=== PATIENT | male | born 1995 | race Hispanic/Latino ===

== ENCOUNTER 2025-03-12 08:38 | Emergency (ER) | payer SELFPAY ==
[~2025-03-12] VITALS: Ht 185.4 cm; Wt 77.1 kg
[2025-03-12 08:40] VITALS: BP 138/77; PULSE 76; RESP 16; TEMP 97.9; O2SAT 100
[2025-03-12] MEDS ORDERED: ERYT1OIN7 OP (09:23)
--- NOTE | 2025-03-12 09:25 | ERN ---
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 Allergies: Coded Allergies: No Known Allergies (Unverified Allergy, Unknown, 03/12/25) Past Medical History Past Medical History: No Pertinent History Surgical History: None Review of System Dictation Constitutional: Negative for fever,chills, and weight loss Eyes: Per HPI ENT: Negative for injury,pain or swelling Cardiovascular: Negative for chest pain, palpitations, and edema e MS/Extremity: Negative for injury and deformity Skin: Negative for rash, and discoloration Neuro: Negative for headache, weakness, numbness, tingling, and seizure Initial Vital Sign VS Vital Signs Date Time Temp Pulse Resp B/P (MAP) Pulse Ox O2 Delivery O2 Flow Rate FiO2 03/12/25 08:40 97.9 76 16 138/77 100 Room Air 0 03/12/25 08:40 21 Physical Exam Dictation General: awake, alert, NAD Head/Face: Normocephalic, atraumatic Eyes: PERRL, EOMI, vision at baseline, left eye shows superficial corneal abrasion and small metallic foreign body object to the 9 o'clock position ENT: oral cavity clear, TMs clear, no signs of infection Neck: Trachea midline, supple, no nuchal rigidity Cardiovascular: RRR, normal S1/S2, No MRGs, no JVD Respiratory: CTAB, no respiratory distress, No rales or wheezes Abdomen: Soft, non-tender, non-distended, normal bowel sounds, no guarding or rebound. Skin: Warm, dry, normal turgor, no rash MS/Extremity: Pulses equal, no cyanosis, neurovascular intact, FROM Neuro: COAx4, GCS 15, strength 5/5, CN 2-12 intact, normal cerebellar exam, normal gait, Psych: Normal behavior, mood, and affect normal ED Course ED Course Orders Procedure Category Date Status Time Tetracaine Hcl PHA 03/12/25 Complete (Pontocaine 0.5% 09:00 Fluorescein Sodium PHA 03/12/25 Complete ([id number] At) 09:03 Current Medications Medications (Trade) Dose Ordered Sig/Fritz Route PRN Reason Start Time Stop Time Status Last Admin Dose Admin Fluorescein Sodium (Idsjf-Z-Qvfoc At) 1 strip STK-MED ONCE .ROUTE 03/12/25 09:03 03/12/25 09:03 DC Tetracaine HCl (Pontocaine 0.5% Ophth Soln) 1 DROP ONCE ONCE OP 03/12/25 09:00 03/12/25 09:01 DC Vital Signs Date Time Temp Pulse Resp B/P (MAP) Pulse Ox O2 Delivery O2 Flow Rate FiO2 03/12/25 08:40 97.9 76 16 138/77 100 Room Air* 0 21 03/12/25 08:40 97.9 76 16 138/77 100 Room Air 0 Medical Decision Making MDM MDM: Differential diagnosis: Rationale: Tests considered and ordered secondary to shared decision making include: Previous outside records reviewed: Old ER visits. Risk of complication and/or morbidity or mortality of patient management: None Medications-Per medication reconciliation Need for hospitalization: Patient does not meet criteria for hospitalization. Need for emergency major/minor surgery: No There are no social concerns with this patient. Prescription drug management Prescriptions will include symptomatic care Patient's prior external medical records from other ER visits were reviewed by me as indicated. Prior testing and results from previous visits were reviewed. Prior tests were taken into account with medical decision making and resource utilization, independent historian/historians were used to obtain complete medical history. I independently interpreted the test that were performed, results were reviewed by me and considered findings on radiology if ordered. Medical management and examination interpretation discussions were had by me with other qualified healthcare professionals as indicated for the patient's care. 30-year-old with a small metallic foreign body object from yd work, anterior chamber/cornea was anesthetized with tetracaine and remove the small circular metallic foreign body object from the cornea, anterior chamber is clear no signs of rupture placed on antibiotics and referred to Ophthalmology. Procedure Progress Procedure in 0 four foreign body object removal to the left cornea, anesthetized with tetracaine fluorescein strip shows small abrasion, anterior chamber was clear foreign body object was removed with Q-tip no complications. DX & DISP Disposition: Discharge Departure Impression: Primary Impression: Left corneal abrasion Additional Impression: Eye foreign body Condition: Stable Scripts Erythromycin Base (Erythromycin) 5 Mg/Gram (0.5 %) Oint...g. 1 APPL OP QID for 5 Days, #1 GM 0 Refills apply 1 cm ribbon into the lower conjunctival sac Prov: KAYLYNN GEORGE MD 03/12/25 Additional Instructions: Please follow up with the glass technologist of [facility] phone number is [phone] Referrals: SELF,REFERRAL (PCP) KAYLYNN GEORGE MD Mar 12, 2025 09:25
[2025-03-12] MEDS ORDERED: DIPHTH,PERTUSS(ACELL),TET VAC 0.5 ML SYG IM ONE (09:30)
[2025-03-12] MEDS: FLUORESCEIN SODIUM 1 STRIP STRIP ONE (09:42)
[2025-03-12] MEDS: TETRACAINE HCL 0.5% 4 ML OPHTH SOLN OP ONE (09:42)
== END 2025-03-12 09:50 | disposition home or self-care (01) ==
LOC: EDH 08:38
DX: S05.02XA Injury of conjunctiva and corneal abrasion without foreign body, left eye, initial encounter (principal); T15.90XA Foreign body on external eye, part unspecified, unspecified eye, initial encounter; W44.9XXA Unspecified foreign body entering into or through a natural orifice, initial encounter; X58.XXXA Exposure to other specified factors, initial encounter; Y93.89 Activity, other specified; Y92.89 Other specified places as the place of occurrence of the external cause; Y99.8 Other external cause status
CPT/HCPCS: 65220; 90471; 90714; 90715; 99284